=== PATIENT | male | born 1995 | race Caucasian/White ===

== ENCOUNTER 2023-09-28 04:03 | Emergency (ER) | payer OTHER ==
[~2023-09-28] VITALS: Ht 180.3 cm; Wt 52.6 kg
[2023-09-28] MEDS ORDERED: AMOX500 PO (05:26)
[2023-09-28 06:02] VITALS: BP 122/83
== END 2023-09-28 06:02 | disposition home or self-care (01) ==
LOC: ER 04:03
DX: J36 Peritonsillar abscess (principal)
CPT/HCPCS: 99282; A9270; J1100